=== PATIENT | female | born 1995 | race Caucasian/White ===

== ENCOUNTER 2019-09-11 08:25 | Emergency (ER) | payer BC ==
--- OUTSIDE RECORDS SUMMARY | 2019-09-11 08:36 | XMS REPORT | Summary of Care ---
:1995 Author Organization [facility] Address [address] [place] [address] Care Team Providers Name Role Phone Shama Schwartz MD Primary Care Provider Reason for Visit Reason Comments Physical CPE Encounter Details Date Type Department Care Team Description 08/03/2019 Office Visit [place] Luisa Martin, Routine general medical examination at a health care facility (Primary Dx); Practice [facility] Dermatitis; [address] [facility] Screening for STD (sexually transmitted disease); [address] [address] Anxiety [phone] Allergies Active Allergy Reactions Severity Noted Date Comments Cat Hair Extract Respiratory Reaction 03/12/2017 Environmental Respiratory Reaction 03/12/2017 Pollen Extract-Tree Extract Respiratory Reaction 03/12/2017 documented as of this encounter (statuses as of 08/03/2019) Medications Medication Sig Dispensed Refills Start Date End Date Status Levonorgestrel Insert IU 0 08/09/2018 08/09/2025 Active (LILETTA, 52 MG,) 19.5 MCG/DAY Intrauterine IUD LORATADINE ALLERGY Take by 0 08/03/2019 Discontinued RELIEF PO mouth. Etonogestrel Inject 0 08/03/2019 Discontinued (NEXPLANON) 68 MG beneath the Subcutaneous Implant skin. documented as of this encounter (statuses as of 08/03/2019) Active Problems No known active problemsdocumented as of this encounter (statuses as of 2019) Immunizations Name Administration Dates Next Due DTAP Vaccine 05/13/2000, 08/16/1997, 1996, 1996, 1996 HIB 08/16/1997, 1996, 1996, 1996 Hepatitis A Vaccine Peds 05/30/2010, 05/21/2009 Hepatitis B Vaccine 1996, 1996, 1996 Human Papillomavirus 07/06/2012, 06/16/2011, 05/30/2010 Influenza (IM) Preservative Free 08/04/2017 MENINGOCOCCAL CONJUGATE VACCINE 07/06/2012, 05/11/2007 MMR VACCINE 05/13/2000, 08/16/1997 Meningococcal B Vaccine 02/26/2016, 01/25/2016 Polio - Inactivated Vaccine 07/06/2012, 05/13/2000, 1996, 1996, 1996 TDAP Vaccine 01/25/2016 Varicella Vaccine Live 05/08/2008, 05/10/1997 documented as of this encounter Social History Tobacco Use Types Packs/Day Years Used Date Never Smoker Smokeless Tobacco: Never Used Alcohol Use Drinks/Week oz/Week Comments Yes 5 Standard drinks or equivalent 5.0 Sex Assigned at Date Recorded Not on file Job Start Date Occupation Industry Not on file Not on file Not on file Travel History Travel Start Travel End No recent travel history available. documented as of this encounter Last Filed Vital Signs Vital Sign Reading Time Taken Comments Blood Pressure 110/68 08/03/2019 1:17 PM EST Pulse 74 08/03/2019 1:17 PM EST Temperature 36.9 08/03/2019 1:17 PM EST C (98.5 F) Respiratory Rate - - Oxygen Saturation 99% 08/03/2019 1:17 PM EST Inhaled Oxygen Concentration - - Weight 83 kg (183 lb) 08/03/2019 1:17 PM EST Height 170.2 cm (5' 7") 08/03/2019 1:17 PM EST Body Mass Index 28.66 08/03/2019 1:17 PM EST documented in this encounter Patient Instructions Patient InstructionsLuisa Olea PA-C - 08/03/2019 1:20 PM EST1. Healthy 24yr old female Continue with Healthy diet, keep well hydrated, regular exercise Ordered labs -- will do now -- will call with results 2. Recommend OTC Eczema lotion -- aveno, also use cool mist vaporizer at bedtime NO long hot showers, soap for sensitive skin 3. Ordered lab -- will do now -- will call with results 4. Gave patient list of therapist is area for anxiety documented in this encounter Progress Notes Luisa Olea PA-C - 08/03/2019 1:20 PM EST PATIENT: Fadia Bullard : 1995 DATE OF SERVICE: 08/03/2019 REFERRING PRACTITIONER: Self-Referred PRIMARY CARE PROVIDER: Shama Schwartz CHIEF COMPLAINT: Chief Complaint Patient presents with Physical CPE Subjective HISTORY OF PRESENT ILLNESS: Fadia Bullard is a 24-y.o. 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 Recently treated all cats for fleas. Has not seen any new bumps Has been applying OTC Benadrly cream for itch -- gives relief Home heat is hot, forced air, not using humidifier Denies fever, chills, nausea, vomiting, diarrhea, chest pains, SOB Past Medical History: Diagnosis Date Head injury 3 minor concussions No past surgical history on file. Family History Problem Relation Age of Onset Asthma Mother childhood Hypertension Father No Known Problems Sister Heart Maternal Grandfather 80 mi Current Outpatient Medications Medication Sig Levonorgestrel (LILETTA, 52 MG,) 19.5 MCG/DAY Intrauterine IUD Insert IU No current facility-administered medications for this visit. Allergies Allergen Reactions Cat Hair Extract Respiratory Reaction Environmental Respiratory Reaction Pollen Extract-Tree Extract Respiratory Reaction Social History Socioeconomic History Marital status: Single Spouse name: Not on file Number of children: Not on file Years of education: Not on file Highest education level: Not on file Occupational History Not on file Social Needs Financial resource strain: Not on file Food insecurity Worry: Not on file Inability: Not on file Transportation needs Medical: Not on file Non-medical: Not on file Tobacco Use Smoking status: Never Smoker Smokeless tobacco: Never Used Substance and Sexual Activity Alcohol use: Yes Alcohol/week: 5.0 standard drinks Types: 5 Standard drinks or equivalent per week Drug use: Yes Frequency: 1.0 times per week Types: Marijuana Sexual activity: Not Currently Partners: Male control/protection: Implant Lifestyle Physical activity Days per week: Not on file Minutes per session: Not on file Stress: Not on file Relationships Social connections Talks on phone: Not on file Gets together: Not on file Attends yarsani service: Not on file Active member of club or organization: Not on file Attends meetings of clubs or organizations: Not on file Relationship status: Not on file Intimate partner violence Fear of current or ex partner: Not on file Emotionally abused: Not on file Physically abused: Not on file Forced sexual activity: Not on file Other Topics Concern Back Care Not Asked Bike Helmet Not Asked Blood Transfusions Not Asked Caffeine Concern Not Asked Exercise Yes Hobby Hazards Not Asked International Travel Not Asked Service Not Asked Occupational Exposure Not Asked Seat Belt Not Asked Self-Exams Not Asked Sleep Concern Not Asked Special Diet No Stress Concern Not Asked Weight Concern Not Asked Social History Narrative Prior records from [employer] reviewed. REVIEW OF SYSTEMS: Skin: itchy lesions bilateral legs Eyes: negative visual blurring Ears/Nose/Throat: negative rhinorrhea, sore throat, sinus pressure, post nasal drip Respiratory: negative cough Cardiovascular: negative chest pain Gastrointestinal: negative abdominal pain, constipation, diarrhea, nausea or vomiting Genitourinary: negative burning on urination, dysuria or vaginal discharge Musculoskeletal: negative arthritis/joint pain Neurologic: negative numbness or tingling of feet or hands Psychiatric: positive anxiety Hematologic/Lymphatic/Immunologic: negative allergies Endocrine: negative diabetes or hot flashes/sweats Objective PHYSICAL EXAMINATION: VITALS: BP 110/68 (BP Location: Left arm, Patient Position: Sitting) | Pulse 74 | Temp 98.5 F(36.9 C) | Ht 5' 7" (1.702 m) | Wt 183 lb (83 kg) | SpO2 99% | BMI 28.66 kg/m Body massindex is 28.66 kg/m. General appearance - alert, no distress, cooperative, oriented times 3 Skin - scattered small lesions bilateral legs. Some scabbed Head - Normocephalic. No masses, lesions, tenderness or abnormalities Eyes - conjunctivae/corneas clear. PERRL, EOM's intact. Ears - External ears normal. Canals clear. TM's normal. Nose/Sinuses - Nares normal. Septum midline. Mucosa normal. No drainage or sinus tenderness. Oropharynx - Lips, mucosa, and tongue normal. Teeth and gums normal. Oropharynx normal. Neck - Neck supple, FROM. No cervical or supraclavicular adenopathy. Thyroid normal, no enlargement Back - Back symmetric, no curvature. ROM normal. No CVA tenderness. Lungs - Good diaphragmatic excursion. Lungs clear. Chest symmetrical. Normal breath sounds. Heart - RRR. No murmurs, clicks or gallops. No peripheral edema. NEUROLOGIC: alert, oriented x3. Gait normal. UE and LE Reflexes and motor strength normal and symmetric. Cranial nerves 2-12 and sensation grossly intact.. ABDOMEN: soft, non-tender. Bowel sounds normal. No masses, no organomegaly. IMPRESSION: ICD-9-CM ICD-10-CM 1. Routine general medical examination at a health care facility V70.0 Z00.00 COMPREHENSIVE METABOLIC PANEL CBC WITH DIFFERENTIAL THYROID STIMULATING HORMONE THYROID STIMULATING HORMONE CBC WITH DIFFERENTIAL COMPREHENSIVE METABOLIC PANEL 2. Dermatitis 692.9 L30.9 3. Screening for STD (sexually transmitted disease) V74.5 Z11.3 HIV 1,2 ANTIBODY SCREEN HIV 1,2 ANTIBODY SCREEN 4. Anxiety 300.00 F41.9 Plan PLAN: 1. Healthy 24yr old female Continue with Healthy diet, keep well hydrated, regular exercise Ordered labs -- will do now -- will call with results 2. Recommend OTC Eczema lotion -- aveno, also use cool mist vaporizer at bedtime NO long hot showers, soap for sensitive skin 3. Ordered lab -- will do now -- will call with results 4. Gave patient list of therapist is area for anxiety Author: Luisa Olea PA-C 08/03/2019 13:24 documented in this encounter Plan of Treatment Name Type Priority Associated Diagnoses Date/Time COMPREHENSIVE METABOLIC Lab Routine Routine general medical 08/03/2019 1: 45 PM PANEL examination at a health [facility] care facility CBC WITH DIFFERENTIAL Lab Routine Routine general medical 08/03/2019 1:45 PM examination at a [facility] care facility THYROID STIMULATING Lab Routine Routine general medical 08/03/2019 1:45 PM HORMONE examination at a [facility] care facility HIV 1,2 ANTIBODY SCREEN Lab Routine Screening for STD 08/03/2019 1:45 PM (sexually transmitted EST disease) Name Type Priority Associated Diagnoses Order Schedule COMPREHENSIVE METABOLIC Lab Routine Routine general medical Expected: 08/03 PANEL examination at a [facility] (Approximate), care facility Expires: 08/03/2020 CBC WITH DIFFERENTIAL Lab Routine Routine general medical Expected: 2019 examination at a [facility] (Approximate), care facility Expires: 08/03/2020 THYROID STIMULATING Lab Routine Routine general medical Expected: 2019 HORMONE examination at a [facility] (Approximate), [facility] facility Expires: 08/03/2020 HIV 1,2 ANTIBODY SCREEN Lab Routine Screening for STD Expected: 08/03/2019 (sexually transmitted (Approximate), disease) Expires: 08/03/2020 Health Maintenance Due Date Last Done Comments HIV SCREENING 2011 PAP SMEAR 2017 INFLUENZA VACCINE (#1) 2019 08/04/2017 DEPRESSION SCREENING 08/03/2020 08/03/2019 DTaP/Tdap/Td Vaccines (7 - 01/24/2026 01/25/2016, 05/13/2000, Tdap) 08/16/1997, Additional history exists HEPATITIS A IMMUNIZATION Completed 05/30/2010, 05/21/2009 SERIES HPV IMMUNIZATION SERIES Completed 07/06/2012, 06/16/2011, 05/30/2010 MENINGOCOCCAL VACCINE IMM Completed 07/06/2012, 05/11/2007 PNEUMOCOCCAL 0-64 YRS Aged Out No longer eligible based on patient's age to complete this topic documented as of this encounter Results Not on filedocumented in this encounter Visit Diagnoses Diagnosis Routine general medical examination at a health care facility Dermatitis Contact dermatitis and other eczema, due to unspecified cause Screening for STD (sexually transmitted disease) Screening examination for venereal disease Anxiety Anxiety state, unspecified documented in this encounter Insurance Payer Benefit Plan / Subscriber ID Effective Dates Phone Address Type Group [employer] xxxxxxxxxxxx 2013-Present [employer] documented as of this encounter
--- OUTSIDE RECORDS SUMMARY | 2019-09-11 08:36 | XMS REPORT | Continuity of Care Document ---
:1995 External Reference #:[id number] Author Name BAILEE Shoemaker (transmitted by agent of provider Jose Munoz) Address [address] [facility] 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 Problems Active Problems Provider Date Allergic rhinitis BAILEE Shoemaker Onset: 06/14/2018 Allergic rhinitis due to pollen BAILEE Shoemaker Onset: 06/14/2018 Social History Type Date Description Comments Sex Unknown Tobacco Use Start: Unknown Patient has never smoked Smoking Status Reviewed: 07/18/19 Patient has never smoked Allergies, Adverse Reactions, Alerts Description No Known Drug Allergies Medications Active Medications SIG Qnty Indications Ordering Provider Date Loratadine take one tablet Unknown 10mg Tablets by mouth daily as needed Medications Administered in Office Medication SIG Qnty Indications Ordering Provider Date Allergy Injection 2 Or More Jose Munoz MD 08/06/2018 Injection Allergy Injection 2 Or More Jose Munoz MD 07/30/2018 Injection Allergy Injection 2 Or More Jose Munoz MD 07/23/2018 Injection Allergy Injection 2 Or More Jose Munoz MD 07/16/2018 Injection Allergy Injection 2 Or More Jose Munoz MD 07/30/2016 Injection Allergy Injection 2 Or More Jose Munoz MD 03/10/2016 Injection Allergy Injection 2 Or More Jose Munoz MD 02/29/2016 Injection Allergy Injection 2 Or More Jose Munoz MD 02/22/2016 Injection Allergy Injection 2 Or More Jsoe Munoz MD 02/15/2016 Injection Allergy Injection 2 Or More Jose Munoz MD 02/08/2016 Injection Allergy Injection 2 Or More Jose Munoz MD 01/30/2016 Injection Allergy Injection 2 Or More Jose Munoz MD 01/18/2016 Injection Allergy Injection 2 Or More Jose Munoz MD 01/11/2016 Injection Allergy Injection 2 Or More Jose Munoz MD 12/14/2015 Injection Allergy Injection 2 Or More Jose Munoz MD 08/08/2015 Injection Allergy Injection 2 Or More Jose Munoz MD 07/30/2015 Injection Allergy Injection 2 Or More Jose Munoz MD 07/18/2015 Injection Immunizations Description No Information Available Vital Signs Date Vital Result Comment 07/18/2019 3:57pm BP Systolic 112 mmHg BP Diastolic 70 mmHg Height 67 inches 5'7" Heart Rate 73 /min Respiratory Rate 16 /min O2 % BldC Oximetry 99 % 06/14/2018 11:07am BP Systolic 120 mmHg BP Diastolic 70 mmHg Height 67 inches 5'7" Weight 174.00 lb BMI (Body Mass Index) 27.2 kg/m2 Heart Rate 69 /min Respiratory Rate 18 /min O2 % BldC Oximetry 99 % Results Description No Information Available Procedures Date Code Description Status 04/06/2019 33081 Allergy Antigens Single Or Multiple Completed Medical Devices Description No Information Available Encounters Description No Information Available Assessments Date Code Description Provider 07/18/2019 J30.1 Allergic rhinitis due to pollen BAILEE Shoemaker 07/18/2019 J30.89 Other allergic rhinitis BAILEE Shoemaker 04/06/2019 J30.1 Allergic rhinitis due to pollen Jose Munoz MD 04/06/2019 J30.89 Other allergic rhinitis Jose Munoz MD Plan of Treatment 07/18/2019 - BAILEE ShoemakerJ30.1 Allergic rhinitis due to pollenComments: Patient to continue allergy immunotherapy injections for prophylaxis of her nose and loratadine for breakthrough nasal symptoms. Saline nasal rinse and HEPA air filter may help decrease allergens. Patient may be interested in stopping allergy immunotherapy injections as she was previously receivinginjections for 3-4 years.Follow up:one yearJ30.89 Other allergic rhinitis Functional Status Description No Information Available Mental Status Description No Information Available Referrals Description No Information Available
--- NOTE | 2019-09-11 09:02 | UC ---
UC General HPI - HPI Summary HPI Summary: starting at 3 am today vomitting, staomach pain, and body aches denies fever, congestion sore throat RN notes reviewed. 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 Subj fever. + mild h/a (not wol). No rash. Less urination than usual d/t fluid loss, but no dysuria / hematuria / freq / urg Has IUD. 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 Recent travel [facility] - in July, no issues however. - History of Current Complaint Chief Complaint: UCGeneralIllness Stated Complaint: VOMITING Time Seen by Provider: 09/11/19 08:53 Hx Obtained From: Patient Hx Last Menstrual Period: 09/05/18 Pain Intensity: 3 - Allergy/Home Medications Allergies/Adverse Reactions: Allergies Allergy/AdvReac Type Severity Reaction Status Date / Time No Known Allergies Allergy Verified 09/11/19 08:41 Home Medications: Home Medications Iud 1 mg VAGINAL ONCE 09/11/19 [History Confirmed 09/11/19] PMH/Surg Hx/FS Hx/Imm Hx Previously Healthy: Yes - Surgical History Surgical History: None - Family History Known Family History: Positive: Non-Contributory - Social History Alcohol Use: Rare Substance Use Type: None Smoking Status (MU): Never Smoked Tobacco Review of Systems All Other Systems Reviewed And Are Negative: Yes Constitutional: Positive: Fever, Fatigue Skin: Positive: Negative Eyes: Positive: Negative ENT: Positive: Sinus Congestion Respiratory: Positive: Cough Cardiovascular: Positive: Negative Gastrointestinal: Positive: Vomiting, Diarrhea, Nausea, Other - minimal pain perse Genitourinary: Positive: Other - see hpi Motor: Positive: Negative Neurovascular: Positive: Negative Musculoskeletal: Positive: Negative Neurological/Mental Status: Positive: Negative - see hpi Psychological: Positive: Negative Is Patient Immunocompromised?: No Physical Exam Triage Information Reviewed: Yes Appearance: Well-Nourished, Other: - looks tired, sick appearing HR 100's at triage, 110's at my exam (radial and auscult) Vital Signs: Initial Vital Signs Temp 98.4 F 09/11/19 08:35 Pulse 103 09/11/19 08:35 Resp 20 09/11/19 08:35 BP 106/64 09/11/19 08:35 Pulse Ox 98 09/11/19 08:35 Vital Signs Reviewed: Yes Eye Exam: Normal ENT: Positive: TM dull - R TM mirza, rtx'd L TM nad post pharynx mild redness, no sores / exudates, uvula midline. mm a little dry Neck exam: Normal Neck: Positive: Supple, Nontender, No Lymphadenopathy Respiratory Exam: Normal Respiratory: Positive: Chest non-tender, Lungs clear, Normal breath sounds, No respiratory distress, No accessory muscle use Cardiovascular Exam: Other - HR 100-110's Cardiovascular: Positive: Pulses Normal, Brisk Capillary Refill Abdominal Exam: Other Abdomen Description: Positive: Nontender, No Organomegaly, Soft Bowel Sounds: Positive: Hyperactive Musculoskeletal Exam: Normal - moves x 4 ext's Neurological Exam: Normal - grossly nonfocal Psychological Exam: Normal - nad Skin Exam: Normal - no visible or reported rash Course/Dx - Course Course Of Treatment: INfluenza a/b neg RST neg IV NS 1L bolus Zofran po 4mg x 1 Will need stool sample, pt reports that she just went to the restroom. Recently vomited bilious (yellow) material, no blood noted. Blood work - cmp, cbc Stool sample. Reviewed coa / tx plan. Questions as posed answered to the best of my ability. 10:22 - IV still running. feels better. 11:05 - Better. Still a little nauseas but tolerated gingerale, and is ready to try some saltines at home. - Diagnoses Provider Diagnosis: Gastroenteritis, Dehydration Discharge ED - Sign-Out/Discharge Documenting (check all that apply): Patient Departure All imaging exams completed and their final reports reviewed: No Studies - Discharge Plan Condition: Improved Disposition: HOME Prescriptions: Ondansetron ODT TAB* [Zofran 4 MG Odt TAB*] 4 mg PO Q6H PRN #16 tab.odt PRN Reason: Nausea Patient Education Materials: Dehydration (ED), Gastroenteritis (ED) Referrals: Shama Schwartz MD [Primary Care Provider] - Additional Instructions: Hydrate Stool sample when you are able. Please seek medical attention for worse or new problems. - Billing Disposition and Condition Condition: IMPROVED Disposition: Home
[2019-09-11 09:08] LABS: Influenza A Molecular Negative (Negative); Influenza B Molecular Negative (Negative)
[2019-09-11] MEDS ORDERED: Ondansetron ODT TAB* 4 MG PO ONE (09:19)
[2019-09-11] MEDS ORDERED: NS 0.9% 1000 ML** 1,000 ML IV ONE (09:20)
[2019-09-11 10:51] VITALS: BP 114/59
[2019-09-11 13:26] LABS: ABS Eosinophils 0.1 10^3/ul (0-0.6); ABS Lymphocytes 0.4 10^3/ul (1.0-4.8); ABS Monocytes 0.4 10^3/ul (0-0.8); Eosinophil % 0.9 %; Hematocrit 40 % (35-47); Hemoglobin 13.4 g/dL (12.0-16.0); Lymphocyte % 4.8 %; Mean Corpuscular HGB Conc 33 g/dL (31-36); Mean Corpuscular Hemoglobin 29 pg (27-31); Mean Corpuscular Volume 86 fL (80-97); Mean Platelet Volume 10.6 fL (7.4-10.4); Platelet Count 177 10^3/uL (150-450); Red Blood Count 4.69 10^6 /uL (3.70-4.87); Red Cell Distribution Width 13 % (10-15); White Blood Count 8.9 10^3/uL (3.5-10.8)
[2019-09-11 13:36] LABS: Albumin 4.5 g/dL (3.2-5.2); Calcium 9.2 mg/dL (8.6-10.3); Potassium 4.1 mmol/L (3.5-5.0); Total Bilirubin 0.7 mg/dL (0.2-1.0)
[2019-09-11 13:42] LABS: Albumin/Globulin Ratio 1.7 (1-3); BUN/Creatinine Ratio 21.1 (8-20); EGFR African American 114.1 (>60); EGFR Non-African American 94.3 (>60); Globulin 2.6 g/dL (2-4); Total Protein 7.1 g/dL (6.4-8.9)
--- NOTE | 2019-09-12 07:20 | UC ---
- Progress Note Progress Note: Lab work reviewed: normal white count, mild increase in BUN/creatinine ration consistent with dehydration. Electrolytes normal. Please call to advise that lab work is justin, ensure that she is feeling improved. Stool results are in process--show inflammatory response but cultures still pending. This is an expected result that is typical of infectious or inflammatory diarrhea. Course/Dx - Diagnoses Provider Diagnoses: Gastroenteritis, Dehydration Discharge ED - Sign-Out/Discharge Documenting (check all that apply): Post-Discharge Follow Up All imaging exams completed and their final reports reviewed: No Studies - Discharge Plan Condition: Improved Disposition: HOME Prescriptions: Ondansetron ODT TAB* [Zofran 4 MG Odt TAB*] 4 mg PO Q6H PRN #16 tab.odt PRN Reason: Nausea Patient Education Materials: Dehydration (ED), Gastroenteritis (ED) Referrals: Shama Schwartz MD [Primary Care Provider] - Additional Instructions: Hydrate Stool sample when you are able. Please seek medical attention for worse or new problems. - Billing Disposition and Condition Condition: IMPROVED Disposition: Home
[2019-09-13 18:23] LABS: Stool Helicobacter pylori Ag Negative (Negative)
--- NOTE | 2019-09-14 08:14 | UC ---
- Progress Note Progress Note: Neg Helicobacter No change angel 09/14/19 Course/Dx - Diagnoses Provider Diagnoses: Gastroenteritis, Dehydration Discharge ED - Sign-Out/Discharge Documenting (check all that apply): Post-Discharge Follow Up All imaging exams completed and their final reports reviewed: No Studies - Discharge Plan Condition: Improved Disposition: HOME Prescriptions: Ondansetron ODT TAB* [Zofran 4 MG Odt TAB*] 4 mg PO Q6H PRN #16 tab.odt PRN Reason: Nausea Patient Education Materials: Dehydration (ED), Gastroenteritis (ED) Referrals: Shama Schwartz MD [Primary Care Provider] - Additional Instructions: Hydrate Stool sample when you are able. Please seek medical attention for worse or new problems. - Billing Disposition and Condition Condition: IMPROVED Disposition: Home
== END 2019-09-11 11:39 | disposition home or self-care (01) ==
LOC: UCEAST 08:25
DX: K52.9 Noninfective gastroenteritis and colitis, unspecified (principal); E86.0 Dehydration; J34.89 Other specified disorders of nose and nasal sinuses; R05 Cough
CPT/HCPCS: 36415; 80053; 83630; 85025; 87045; 87046; 87338; 87425; 87651; 87899; 96360; 99202; A9270-GY; G0463